=== PATIENT | female | born 1965 | race Caucasian/White ===

== ENCOUNTER 2017-08-21 06:07 | Day surgery (SDC) | payer OTHER ==
[~2017-08-21] VITALS: Ht 170.2 cm; Wt 64.5 kg
[~2017-08-21 06:07] MED LIST: Cyclobenzaprine5 MG; Diclofenac Sodi50 MG; GABA300
== END 2017-08-21 10:00 | disposition home or self-care (01) ==
LOC: ORSCSDS 06:07
PROVIDERS: Orthopaedic Surgery
PROC: 01N50ZZ Release Median Nerve, Open Approach (ICD-10-PCS; principal; 2017-08-21 07:30)
PROC: 01X40Z4 Transfer Ulnar Nerve to Ulnar Nerve, Open Approach (ICD-10-PCS; principal; 2017-08-21 07:30)
DX: G56.01 Carpal tunnel syndrome, right upper limb (principal); G56.21 Lesion of ulnar nerve, right upper limb; F17.210 Nicotine dependence, cigarettes, uncomplicated; Z79.899 Other long term (current) drug therapy
CPT/HCPCS: J0171; J0690; J1100; J1885; J2250; J2405; J3010; J7120

== ENCOUNTER 2019-09-25 11:39 | Day surgery (SDC) | payer OTHER ==
[~2019-09-25] VITALS: Ht 170.2 cm; Wt 64.9 kg
[~2019-09-25 11:39] MED LIST changes: -Cyclobenzaprine5 MG; +Cyclobenzaprine5 MG PO; +MELO7.5 PO; +THERA-D2000 UNIT PO; +VARE1 PO
--- NOTE | 2019-09-25 13:07 | NUR ---
09/25/19 1306 June Adhikari GREEN/YELLOW [id number] LOWER SCOPE
== END 2019-09-25 13:58 | disposition home or self-care (01) ==
LOC: ORSCSDS 11:39
PROVIDERS: Surgery
PROC: 0DJD8ZZ Inspection of Lower Intestinal Tract, Via Natural or Artificial Opening Endoscopic (ICD-10-PCS; principal; 2019-09-25 13:00)
DX: Z12.11 Encounter for screening for malignant neoplasm of colon (principal); I10 Essential (primary) hypertension; F32.9 Major depressive disorder, single episode, unspecified; F17.210 Nicotine dependence, cigarettes, uncomplicated; Z79.899 Other long term (current) drug therapy
CPT/HCPCS: J2405; J2704; J7120